=== PATIENT | male | born 1990 | race Caucasian/White ===

== ENCOUNTER 2018-03-16 07:39 | Emergency (ER) | payer BC ==
[~2018-03-16] VITALS: Ht 190.5 cm; Wt 103.4 kg
[2018-03-16 07:47] VITALS: BP 141/79
[2018-03-16] MEDS ORDERED: KETOROLAC TROMETHAMINE INJ 60 MG/2 ML VIAL IM ONE ×2 (08:11→08:30)
[2018-03-16] MEDS ORDERED: DIAZEPAM 10 MG TABLET ONE (08:11)
--- NOTE | 2018-03-16 08:15 | NUR ---
Toradol IM as ordered R deltoid
--- NOTE | 2018-03-16 08:29 | NUR ---
For discharge- [facility] given Verbalized understanding home with family Ambulatory, Stable
[2018-03-16] MEDS ORDERED: DIAZEPAM 10 MG TABLET PO ONE (08:30)
== END 2018-03-16 08:33 | disposition home or self-care (01) ==
LOC: ER 07:42
DX: M62.830 Muscle spasm of back (principal); M54.6 Pain in thoracic spine
CPT/HCPCS: 96372; 99283; A4606; J1885; Z7610